=== PATIENT | female | born 1955 | race Caucasian/White ===

== ENCOUNTER 2016-11-04 17:06 | Inpatient (IN) | payer BC, OTHER ==
[~2016-11-04] VITALS: Ht 157.5 cm; Wt 63.0 kg
[2016-11-04] VITALS (8 sets, daily range): BP systolic 146–191; BP diastolic 88–108; PULSE 64–84; RESP 16–18; TEMP 98; O2SAT 97–99
[~2016-11-04 17:06] MED LIST: ASPI81TA82 PO; CHLO10 PO; CLON.1 PO; ESCI10TA PO; FENO160T2 PO; FOLI1 PO; HYDR-2768 PO; KCL20 PO; LEVA750T PO; LORA-474 PO; MAGN400 PO; PROT40TA PO; QUET100 PO; THIA100T PO; VALT1TAB26 PO
[2016-11-04] MEDS ORDERED: MELA1TAB18 PO (17:24)
[2016-11-04] MEDS ORDERED: ACYC800T PO (17:24)
[2016-11-04] MEDS ORDERED: ASPI1TAB69 PO (17:24)
--- NOTE | 2016-11-04 17:26 | PD ---
HPI Chief Complaint: GI Complaint Time Seen by Provider: 17:17 Travel History International Travel<30 days: No Contact w/Intl Traveler<30days: No Traveled to known affect area: No History of Present Illness HPI 61-year-old female here for evaluation of right upper quadrant abdominal pain. The patient reports having 4 episodes of pain in this area that wrapped around her back and upper abdomen this morning after eating. She has never had pain like this before. She states that the pain was severe. Currently she is pain- free. She denies dyspnea. No fevers or chills. No urinary symptoms. She forced himself to vomit thinking that it would alleviate the pain, however has not had any vomiting other than this episode. No diarrhea. She denies history of cardiac disease stating that she had a normal stress test in April of last year. No history of DVT or PE. She drank a glass of wine yesterday and about a year ago stopped drinking daily. History of tummy tuck. No other abdominal surgeries. PFSH Past Medical History Autoimmune Disease: No Anxiety: Yes Depression: No High Cholesterol: Yes Diminished Hearing: No Endocrine: No GERD: Yes Genitourinary: No Hypertension: Yes Immune Disorder: No Musculoskeletal: No Neurologic: Yes Psychiatric: Yes Reproductive: No Respiratory: No Immunizations Current: No Migraines: Yes Thyroid Disease: No Menopausal: Yes Past Surgical History Eye Surgery: Yes (CATARACTS) Other Surgery: Yes (BREAST AUGMENTATION) Social History Alcohol Use: Yes (UNKNOWN TYPE OF DRINK ) Tobacco Use: Yes (VAPE) Allergies-Medications (Allergen,Severity, Reaction): Coded Allergies: Penicillin (Verified Allergy, Severe, UNKNOWN, 11/04/16) UNKNOWN SINCE CHILDHOOD Reported Meds & Prescriptions Reported Meds & Active Scripts Active Reported Acyclovir 800 Mg Tab Unknown Dose PO BID Melatonin 10 Mg Tab 10 Mg PO HS PRN Aspirin 81 Mg Tabdr 81 Mg PO DAILY Review of Systems Except as stated in HPI: all other systems reviewed are Neg Physical Exam Narrative GENERAL: Well-developed, well-nourished, comfortable, no acute distress. SKIN: Focused skin assessment warm/dry. No rash. HEAD: Atraumatic. Normocephalic. EYES: Pupils equal and round. No scleral icterus. No injection or drainage. ENT: No nasal bleeding or discharge. Mucous membranes pink and moist. NECK: Trachea midline. No JVD. CARDIOVASCULAR: Regular rate and rhythm. RESPIRATORY: No accessory muscle use. Clear to auscultation. Breath sounds equal bilaterally. GASTROINTESTINAL: Abdomen soft, nondistended. Mild RUQ tenderness. Rest of abdomen is soft and non-tender. No peritoneal signs. Negative Castillo sign. MUSCULOSKELETAL: No obvious deformities. No clubbing. No cyanosis. No edema. No CVA tenderness. No midline vertebral step-off or tenderness. NEUROLOGICAL: Awake and alert. No obvious cranial nerve deficits. Motor grossly within normal limits. Normal speech. PSYCHIATRIC: Appropriate mood and affect; insight and judgment normal. Data Data Last Documented VS Vital Signs Date Time Temp Pulse Resp B/P Pulse Ox O2 Delivery O2 Flow Rate FiO2 11/04/16 18:38 84 16 146/88 97 Room Air 11/04/16 17:09 98.0 Orders Complete Blood Count With Diff (11/04/16 17:22) Comprehensive Metabolic Panel (11/04/16 17:22) Lipase (11/04/16 17:22) Prothrombin Time / Inr (Pt) (11/04/16 17:22) Act Partial Throm Time (Ptt) (11/04/16 17:22) Urinalysis - C+S If Indicated (11/04/16 17:22) Us Abdomen Gallbladder (11/04/16 ) Iv Access Insert/Monitor (11/04/16 17:22) Ecg Monitoring (11/04/16 17:22) Oximetry (11/04/16 17:22) Sodium Chloride 0.9% Flush (Ns Flush) (11/04/16 17:30) Electrocardiogram (11/04/16 17:22) Ckmb (Isoenzyme) Profile (11/04/16 17:22) Troponin I (11/04/16 17:22) Ciprofloxacin 400 Mg Premix (Cipro 400 M (11/04/16 19:45) Metronidazole 500 Mg Inj (Flagyl 500 Mg (11/04/16 19:45) Labs Laboratory Tests Test 11/04/16 11/04/16 17:30 17:35 Urine Collection Type CLEAN CATCH Urine Color YELLOW Urine Turbidity CLEAR Urine pH 5.5 Urine Specific [place] 1.025 Urine Protein NEG mg/dL Urine Glucose (UA) NEG mg/dL Urine Ketones TRACE mg/dL Urine Occult Blood NEG Urine Nitrite NEG Urine Bilirubin NEG Urine Leukocyte Esterase NEG Urine WBC 0-2 /hpf Urine Squamous Epithelial 6-8 /hpf Cells Urine Amorphous Sediment FEW Microscopic Urinalysis Comment CULT NOT INDICATED Urine Collection Time 1730 White Blood Count 12.3 TH/MM3 Red Blood Count 4.13 MIL/MM3 Hemoglobin 13.1 GM/DL Hematocrit 37.8 % Mean Corpuscular Volume 91.5 FL Mean Corpuscular Hemoglobin 31.6 PG Mean Corpuscular Hemoglobin 34.6 % Concent Red Cell Distribution Width 12.2 % Platelet Count 298 TH/MM3 Mean Platelet Volume 8.7 FL Neutrophils (%) (Auto) 75.5 % Lymphocytes (%) (Auto) 16.3 % Monocytes (%) (Auto) 6.8 % Eosinophils (%) (Auto) 1.1 % Basophils (%) (Auto) 0.3 % Neutrophils # (Auto) 9.4 TH/MM3 Lymphocytes # (Auto) 2.0 TH/MM3 Monocytes # (Auto) 0.8 TH/MM3 Eosinophils # (Auto) 0.1 TH/MM3 Basophils # (Auto) 0.0 TH/MM3 CBC Comment DIFF FINAL Differential Comment Prothrombin Time 10.6 SEC Prothromb Time International 1.0 RATIO Ratio Activated Partial 25.3 SEC Thromboplast Time Sodium Level 140 MEQ/L Potassium Level 3.4 MEQ/L Chloride Level 104 MEQ/L Carbon Dioxide Level 27.0 MEQ/L Anion Gap 9 MEQ/L Blood Urea Nitrogen 21 MG/DL Creatinine 0.68 MG/DL Estimat Glomerular Filtration 88 ML/MIN Rate Random Glucose 129 MG/DL Calcium Level 8.9 MG/DL Total Bilirubin 0.3 MG/DL Aspartate Amino Transf 21 U/L (AST/SGOT) Alanine Aminotransferase 21 U/L (ALT/SGPT) Alkaline Phosphatase 72 U/L Total Creatine Kinase 85 U/L Troponin I LESS THAN 0.02 NG/ML Total Protein 8.1 GM/DL Albumin 4.2 GM/DL Lipase 447 U/L [facility] Medical Decision Making Medical Screen Exam Complete: Yes Emergency Medical Condition: Yes Medical Record Reviewed: Yes Interpretation(s) EKG: Sinus, rate 73, leftward axis, normal intervals, RSR prime which is old, Q waves in inferior leads, no acute ischemic abnormality Differential Diagnosis Cholelithiasis, cholecystitis, pancreatitis, peptic ulcer disease, nephrolithiasis, pyelonephritis Narrative Course Initial vital signs show heart rate 80, blood pressure 152/89, pulse ox 99% on room air, oral temp of 98F. CBC shows WBC 12.3, hemoglobin 13.1, hematocrit 37.8, platelets 298, neutrophils 75.5%. CMP is essentially unremarkable. Cardiac enzymes are negative. Lipase is 447. UA shows trace ketones, not suggestive of UTI. Right upper quadrant ultrasound: CONCLUSION: 1. Gallstone in the gallbladder with some thickening of the gallbladder wall. There is a trace of fluid adjacent to the gallbladder. No definite biliary tract obstruction.2. The rest of the exam is unremarkable. Case discussed with on-call [facility] general surgeon Dr. Koch who recommends starting the patient on antibiotics, admitting to the [facility] hospital to the medical service for repeat lab work in the morning. He will see the patient in consultation. Case discussed with [facility] hospitalist Dr. Sage who will admit the patient to his service to the [facility] hospital. The patient was made aware of all findings and of plan for admission. Diagnosis Primary Impression: Biliary colic Admitting Information Admitting Physician Requests: Observation Mo Sanchez MD Nov 04, 2016 17:26
[2016-11-04] MEDS ORDERED: SODIUM CHLORIDE 0.9% FLUSH 10 ML FLUSH IV FLUSH PRN (17:30)
[2016-11-04 17:48] LABS: AUTOMATED NEUTROPHIL # 9.4 TH/MM3 (1.8-7.7); BASOPHIL % 0.3 % (0.0-2.0); EOSINOPHIL # 0.1 TH/MM3 (0-0.4); EOSINOPHIL % 1.1 % (0.0-4.0); HEMATOCRIT 37.8 % (35.0-46.0); LYMPH % 16.3 % (9.0-44.0); MEAN CELL VOLUME 91.5 FL (80.0-100.0); MEAN CORPUSCULAR HEMOGLOBIN 31.6 PG (27.0-34.0); MEAN CORPUSCULAR HGB CONC 34.6 % (32.0-36.0); MONO % 6.8 % (0.0-8.0); NEUT % 75.5 % (16.0-70.0); PLATELET COUNT 298 TH/MM3 (150-450); RED BLOOD COUNT 4.13 MIL/MM3 (4.00-5.30); RED CELL DISTRIBUTION WIDTH 12.2 % (11.6-17.2); WHITE BLOOD COUNT 12.3 TH/MM3 (4.0-11.0)
[2016-11-04 17:50] LABS: HEMO FLAGS DIFF FINAL
[2016-11-04 17:56] LABS: BLOOD, URINE NEG (NEG); GLUCOSE,URINE NEG (NEG); KETONE, URINE TRACE mg/dL (NEG); NITRITE,URINE NEG (NEG); PH, URINE 5.5 (5.0-8.5)
[2016-11-04 17:57] LABS: CHLORIDE 104 MEQ/L (98-107); POTASSIUM 3.4 MEQ/L (3.5-5.1); SODIUM (NA) 140 MEQ/L (136-145)
[2016-11-04 18:01] LABS: APTT (PATIENT) 25.3 SEC (24.3-30.1); PROTHROMBIN TIME - PATIENT 10.6 SEC (9.8-11.6)
[2016-11-04 18:02] LABS: ANION GAP 9 MEQ/L (5-15); BLOOD UREA NITROGEN 21 MG/DL (7-18)
[2016-11-04 18:04] LABS: ALT (GPT) 21 U/L (10-53); AST (GOT) 21 U/L (15-37); GLOMERULAR FILTRATION RATE 88 ML/MIN (>89)
[2016-11-04 18:06] LABS: TOTAL BILIRUBIN ADULT 0.3 MG/DL (0.2-1.0)
[2016-11-04 18:07] LABS: METHOD OF COLLECTION CLEAN CATCH; URINE COLOR YELLOW (YELLW/STRAW)
[2016-11-04 18:07] LABS: ALKALINE PHOSPHATASE 72 U/L (45-117)
[2016-11-04 18:08] LABS: COMMENT (UR) CULT NOT INDICATED; COMMENT2 (UR) MUCOUS PRESENT; CULTURE IF INDICATED CULT NOT INDICATED; WBC, URINE 0-2 /hpf (0-5)
[2016-11-04 18:09] LABS: CREATINE KINASE 85 U/L (26-192)
--- NOTE | 2016-11-04 19:16 | RADHPO ---
EXAM DATE/TIME: 11/04/2016 18:45 [place] COMPARISON: No previous studies available for comparison. INDICATIONS : Right upper quadrant pain. MEDICAL HISTORY : Hypercholesterolemia. Hypertension. Gastroesophageal reflux disease. SURGICAL HISTORY : Right knee surgery. Breast augmentation. ENCOUNTER: Initial ACUITY: 1 day PAIN SCORE: 6/10 LOCATION: Right upper quadrant MEASUREMENTS: LIVER: 12.8 cm length COMMON DUCT: 7 mm RIGHT KIDNEY: 9.7 x 6.0 x 5.0 cm FINDINGS: LIVER: Normal echotexture without focal lesion or ductal dilatation. COMMON DUCT: No intraluminal mass or stone visualized. GALLBLADDER: There is a stone in the gallbladder measuring 1.7 cm. There is some sludge in the gallbladder. There is thickening of the gallbladder wall at 3 mm. There is a trace of fluid adjacent to the gallbladder. PANCREAS: The visualized portions are within normal limits. RIGHT KIDNEY: No evidence of hydronephrosis, stone, or mass. CONCLUSION: 1. Gallstone in the gallbladder with some thickening of the gallbladder wall. There is a trace of flu id adjacent to the gallbladder. No definite biliary tract obstruction.2. The rest of the exam is unre markable. Felipe Tsai MD on November 04, 2016 at 19:12 Board Certified Radiologist. This report was verified electronically.
[2016-11-04] MEDS ORDERED: metroNIDAZOLE 500 MG INJ 100 ML IV ONE (19:45)
[2016-11-04] MEDS ORDERED: CIPROFLOXACIN 400 MG PREMIX 200 ML IV ONE (19:45)
[2016-11-04] MEDS ORDERED: MORPHINE SULFATE 4 MG/ML INJ IV PUSH ONE (20:00)
[2016-11-04] MEDS ORDERED: SODIUM CHLORIDE 0.9% FLUSH 10 ML FLUSH IVF PRN (20:45)
[2016-11-04] MEDS: SODIUM CHLORIDE 0.9% FLUSH 10 ML FLUSH IV FLUSH SCH (20:58)
[2016-11-04] MEDS ORDERED: LORazepam 2 MG/ML VIAL IV ONE (21:45)
[2016-11-04] MEDS ORDERED: ENALAPRILAT 1.25 MG/ML VIAL IV PUSH PRN (21:45)
[2016-11-04] MEDS ORDERED: ONDANSETRON HCL 4 MG/2 ML VIAL IV PUSH PRN (22:15)
[2016-11-04] MEDS: MORPHINE SULFATE 4 MG/ML INJ IV PUSH PRN (23:12)
[2016-11-04] MEDS: NS + KCL 20 MEQ INJ 1,000 ML IV SCH (23:16)
[2016-11-05] VITALS (8 sets, daily range): BP systolic 123–164; BP diastolic 65–90; PULSE 68–95; RESP 16–20; TEMP 96.8–98.1; O2SAT 93–99
[2016-11-05] MEDS: MORPHINE SULFATE 4 MG/ML INJ IV PUSH PRN ×3 (04:15→12:53)
[2016-11-05] MEDS: metroNIDAZOLE 500 MG INJ 100 ML IV SCH ×3 (04:15→18:06)
[2016-11-05] MEDS: NS + KCL 20 MEQ INJ 1,000 ML IV SCH (08:15)
[2016-11-05] MEDS: LEVOFLOXACIN 500 MG PREMIX INJ 100 ML IV SCH (08:33)
[2016-11-05] MEDS: SODIUM CHLORIDE 0.9% FLUSH 10 ML FLUSH IV FLUSH SCH ×2 (08:34→19:49)
--- NOTE | 2016-11-05 10:15 | EKG ---
Date Performed: 11/04/2016 Time Performed: 17:36:30 PTAGE: 61 years EKG: Sinus rhythm rSr'(V1) - probable normal variant Inferior infarct - age undetermined Compared to prior tracing no significant change Abnormal ECG PREVIOUS TRACING : 03/21/2016 18.21 DOCTOR: Eleni Suero Interpretating Date/Time 11/05/2016 10:14:02
[2016-11-05 10:29] LABS: AUTOMATED NEUTROPHIL # 4.5 TH/MM3 (1.8-7.7); BASOPHIL % 0.7 % (0.0-2.0); EOSINOPHIL # 0.2 TH/MM3 (0-0.4); EOSINOPHIL % 2.2 % (0.0-4.0); HEMATOCRIT 35.5 % (35.0-46.0); HEMO FLAGS DIFF FINAL; LYMPH % 24.2 % (9.0-44.0); LYMPHOCYTE # 1.7 TH/MM3 (1.0-4.8); MEAN CELL VOLUME 92.4 FL (80.0-100.0); MEAN CORPUSCULAR HGB CONC 34.7 % (32.0-36.0); MONO % 10.2 % (0.0-8.0); NEUT % 62.7 % (16.0-70.0); PLATELET COUNT 262 TH/MM3 (150-450); RED BLOOD COUNT 3.84 MIL/MM3 (4.00-5.30); RED CELL DISTRIBUTION WIDTH 12.9 % (11.6-17.2); WHITE BLOOD COUNT 7.2 TH/MM3 (4.0-11.0)
[2016-11-05 11:07] LABS: BICARBONATE 27.7 MEQ/L (21.0-32.0); INDIRECT BILIRUBIN 0.2 MG/DL (0.0-0.8); POTASSIUM 3.5 MEQ/L (3.5-5.1); TOTAL BILIRUBIN ADULT 0.3 MG/DL (0.2-1.0)
--- NOTE | 2016-11-05 11:22 | HHI.HP ---
HPI Service [facility] Hospitalists Primary Care Physician No Primary Care Physician Admission Diagnosis biliary colic Chief Complaint: ruq/right scapula pain Travel History International Travel<30 Days: No Contact w/Intl Traveler <30 Da: No Traveled to Known Affected Are: No History of Present Illness Pt is 61 yo having ruq pain radiating to right scapula. worsened with food intake gb u/s last night shows signs of acute cholecystitis and gallstone dz. started on iv abx and already ruq pain improved. her lipase was elevated on admission mildly. Says she was very anxious last night and that is why her bp is up. no headache. asking for anxiolytics now. Review of Systems Other ruq abdomen pain right scapula pain Past Family Social History Past Medical History htn depression/anxiety breast augmentation abdomenoplasty Reported Medications Reported Meds & Active Scripts Active Reported Acyclovir 800 Mg Tab Unknown Dose PO BID Melatonin 10 Mg Tab 10 Mg PO HS PRN Aspirin 81 Mg Tabdr 81 Mg PO DAILY Allergies: Coded Allergies: Penicillin (Verified Allergy, Severe, UNKNOWN, 11/04/16) UNKNOWN SINCE CHILDHOOD Family History nc Social History occ etoh. wine 3x week describes a past hx sounds like etoh abuse at one point quit smoking after 1ppd x 13yrs Physical Exam Vital Signs heent neg heart reg lung cta abd s/nt/nabs ext no edema Vital Signs Date Time Temp Pulse Resp B/P Pulse Ox O2 Delivery O2 Flow Rate FiO2 11/05/16 08:41 18 11/05/16 07:55 97.8 68 20 141/85 96 11/05/16 07:47 93 21 11/05/16 03:29 97.9 69 16 145/71 95 11/05/16 02:40 70 16 164/90 97 Room Air 11/05/16 01:40 74 16 154/87 98 Room Air 11/05/16 00:05 70 16 164/89 97 Room Air 11/04/16 23:10 82 16 164/92 97 Room Air 11/04/16 22:41 99 21 11/04/16 22:41 67 16 154/92 99 Room Air 11/04/16 22:14 68 16 167/94 99 Room Air 11/04/16 20:57 64 16 191/108 99 Room Air 11/04/16 20:30 70 18 191/103 97 Room Air 11/04/16 20:15 16 11/04/16 18:38 84 16 146/88 97 Room Air 11/04/16 17:43 16 99 Room Air 11/04/16 17:09 98.0 80 16 152/89 99 Laboratory Laboratory Tests Test 11/04/16 11/04/16 11/05/16 17:30 17:35 09:06 Urine Collection Type CLEAN CATCH Urine Color YELLOW Urine Turbidity CLEAR Urine pH 5.5 Urine Specific [place] 1.025 Urine Protein NEG Urine Glucose (UA) NEG Urine Ketones TRACE Urine Occult Blood NEG Urine Nitrite NEG Urine Bilirubin NEG Urine Leukocyte Esterase NEG Urine WBC 0-2 Urine Squamous Epithelial 6-8 Cells Urine Amorphous Sediment FEW Microscopic Urinalysis Comment CULT NOT INDICATED Urine Collection Time 1730 White Blood Count 12.3 7.2 Red Blood Count 4.13 3.84 Hemoglobin 13.1 12.3 Hematocrit 37.8 35.5 Mean Corpuscular Volume 91.5 92.4 Mean Corpuscular Hemoglobin 31.6 32.0 Mean Corpuscular Hemoglobin 34.6 34.7 Concent Red Cell Distribution Width 12.2 12.9 Platelet Count 298 262 Mean Platelet Volume 8.7 9.1 Neutrophils (%) (Auto) 75.5 62.7 Lymphocytes (%) (Auto) 16.3 24.2 Monocytes (%) (Auto) 6.8 10.2 Eosinophils (%) (Auto) 1.1 2.2 Basophils (%) (Auto) 0.3 0.7 Neutrophils # (Auto) 9.4 4.5 Lymphocytes # (Auto) 2.0 1.7 Monocytes # (Auto) 0.8 0.7 Eosinophils # (Auto) 0.1 0.2 Basophils # (Auto) 0.0 0.0 CBC Comment DIFF FINAL DIFF FINAL Differential Comment Prothrombin Time 10.6 Prothromb Time International 1.0 Ratio Activated Partial 25.3 Thromboplast Time Sodium Level 140 140 Potassium Level 3.4 3.5 Chloride Level 104 106 Carbon Dioxide Level 27.0 27.7 Anion Gap 9 6 Blood Urea Nitrogen 21 16 Creatinine 0.68 0.56 Estimat Glomerular Filtration 88 110 Rate Random Glucose 129 101 Calcium Level 8.9 8.8 Total Bilirubin 0.3 0.3 Aspartate Amino Transf 21 19 (AST/SGOT) Alanine Aminotransferase 21 18 (ALT/SGPT) Alkaline Phosphatase 72 69 Total Creatine Kinase 85 Troponin I LESS THAN 0.02 Total Protein 8.1 7.4 Albumin 4.2 3.8 Lipase 447 210 Direct Bilirubin 0.1 Indirect Bilirubin 0.2 Result Diagram: 11/05/16 0911/05/16905 Assessment and Plan Problem List: (1) Acute cholecystitis Status: Acute Plan: Presents with acute cholecystitis/cholelithiasis iv levaquin/flagyl ivf npo pain control consult gen surg lap jimbo today prn bp control dvt prophylaxis d/c when ok with gen surg (2) Hypertension Status: Chronic Plan: prn control start scheduled if needed. Jens Sage MD Nov 05, 2016 11:22
[2016-11-05] MEDS ORDERED: NORMOSOL R INJ 1,000 ML IV ONE (12:00)
[2016-11-05] MEDS ORDERED: ONDANSETRON HCL 4 MG/2 ML VIAL IV PUSH ONE (12:00)
[2016-11-05] MEDS ORDERED: PROPOFOL 200 MG/20 ML AMP IV ONE (12:00)
[2016-11-05] MEDS ORDERED: PHENYLEPH/NS 1000 MCG/10 ML SYR IV ONE (12:00)
[2016-11-05] MEDS ORDERED: ePHEDrine/NS 25 MG/5 ML SYR IV ONE (12:00)
[2016-11-05] MEDS: LORazepam 2 MG/ML VIAL IV PRN ×2 (13:17→19:49)
[2016-11-05] MEDS ORDERED: ACETAMINOPHEN 1000 MG/100 ML VIAL IV ONE (14:00)
[2016-11-05] MEDS ORDERED: DICLOFENAC SODIUM 37.5 MG/ML VIAL IV PUSH ONE (14:00)
[2016-11-05] MEDS ORDERED: fentaNYL CITRATE 250 MCG/5 ML AMP ONE (14:01)
[2016-11-05] MEDS ORDERED: SUGAMMADEX SODIUM 200 MG/2 ML VIAL IV PUSH ONE ×2 (14:01)
[2016-11-05] MEDS ORDERED: DEXAMETHASONE SOD PHOS 4 MG/ML VIAL ONE (14:01)
[2016-11-05] MEDS ORDERED: BUPIVACAINE/EPINEPHRINE 0.5% PF 30 ML VIAL ONE (14:14)
[2016-11-05] MEDS ORDERED: BUPIVACAINE/EPINEPHRINE 0.25% 50 ML VIAL ONE (14:15)
--- NOTE | 2016-11-05 14:35 | MB ---
cc: GURDEEP JIMENEZ DATE OF CONSULTATION: 11/05/2016. REASON FOR CONSULTATION: HISTORY OF PRESENT ILLNESS: This is a 61-year-old female who presented to the emergency room with a complaint of abdominal pain. The pain began on 2006 and was located in the epigastrium and moved to her right back. She states she had a piece of steak the morning prior to pain. She h as had nausea associated with it. Denied emesis. No fevers. No chills. She was worked up in the emergency room with ultrasound that revealed mildly thickened gallbladder wall with a small amount of pericholecystic fluid and gallstones. Her lipase at that time was in the 400s. She denies any change in her stool or her bowel movements. PAST MEDICAL HISTORY: Her past medical history is significant for: 1. Migraines. PAST SURGICAL HISTORY: Her surgical history is significant for: 1. Breast augmentation. 2. Abdominoplasty. MEDICATIONS: She is on medication at home that includes 1. Acyclovir. 2. Melatonin. 3. Aspirin. ALLERGIES: PENICILLIN. SOCIAL HISTORY: She denies tobacco use. She drinks alcohol occasionally. FAMILY HISTORY: Noncontributory. REVIEW OF SYSTEMS: Review of systems significant for above. All other 10-point review negative. PHYSICAL EXAMINATION: GENERAL: On exam she is laying in bed in no acute distress. HEAD, EYES, EARS, NOSE, THROAT: The pupils are equal and reactive. Sclerae anicteric. Trachea is midline. Respirations clear. CARDIOVASCULAR: Cardiovascular was regular. GASTROINTESTINAL: Soft. Mild tenderness in the right upper quadrant. MUSCULOSKELETAL: No deformities. NEUROLOGIC: Nonfocal. LABORATORY DATA: The patient's white blood cell count on presentation was 12.2 and 7.2 today. Neutrophils on presentation 75 and 62 today. Her lipase 447 on presentation and 210 today. ASSESSMENT: This is a patient with cholelithiasis and cholecystitis. PLAN: Will take the patient to the operating room for laparoscopic cholecystectomy. The risks and benefits were explained to include but not be exclusive to infection, bleeding, bowel injury, bile duct injury. Technical aspects explained as well as shannon- and postoperative course. The patient verbalized understanding and consent was obtained. Will proceed to the operating room. MD FABIO Gregorio/JCMarilin /1:44 PM /2:28 PM
[2016-11-05] MEDS ORDERED: ACETAMINOPHEN/HYDROcodone 325 MG/5 MG TAB PO PRN (15:00)
[2016-11-05] MEDS ORDERED: SODIUM CHLORIDE 0.9% FLUSH 10 ML FLUSH IV FLUSH PRN (15:00)
[2016-11-05] MEDS ORDERED: MORPHINE SULFATE 4 MG/ML INJ IV PRN (15:00)
[2016-11-05] MEDS ORDERED: ACETAMINOPHEN 325 MG TAB PO PRN (15:00)
[2016-11-05] MEDS ORDERED: ONDANSETRON HCL 4 MG/2 ML VIAL IV PRN (15:00)
[2016-11-05] MEDS ORDERED: Post-op Orders (for Pharmacy) MISC XX ONE (15:00)
[2016-11-05] MEDS ORDERED: MIDAZOLAM HCL 2 MG/2 ML VIAL ONE (15:37)
[2016-11-05] MEDS ORDERED: KETOROLAC TROMETHAMINE 30 MG/ML (IVP) VIAL IVP PRN ×2 (16:00)
[2016-11-05] MEDS: SODIUM CHLOR 0.9% 1000 ML INJ 1,000 ML IV SCH (16:21)
[2016-11-06 00:05] VITALS: BP 150/81; PULSE 102; RESP 20; TEMP 96; O2SAT 94
[2016-11-06] MEDS: metroNIDAZOLE 500 MG INJ 100 ML IV SCH ×2 (01:38→13:02)
[2016-11-06] MEDS: SODIUM CHLOR 0.9% 1000 ML INJ 1,000 ML IV SCH ×2 (01:38→11:30)
[2016-11-06 04:02] VITALS: BP 137/79; PULSE 88; RESP 20; TEMP 96; O2SAT 92
[2016-11-06 08:00] VITALS: BP 147/91; PULSE 83; RESP 16; TEMP 98.6; O2SAT 99
[2016-11-06] MEDS: LEVOFLOXACIN 500 MG PREMIX INJ 100 ML IV SCH (08:30)
[2016-11-06] MEDS: ACETAMINOPHEN/HYDROcodone 325 MG/5 MG TAB PO PRN ×3 (08:33→17:03)
[2016-11-06] MEDS: SODIUM CHLORIDE 0.9% FLUSH 10 ML FLUSH IV FLUSH SCH (08:34)
[2016-11-06] MEDS: LORazepam 2 MG/ML VIAL IV PRN (09:57)
[2016-11-06] MEDS ORDERED: PNEUMOCOCCAL POLYVALENT INJ 25 MCG/0.5 ML SYR IM ONE (10:00)
[2016-11-06] MEDS ORDERED: INFLUENZA VIRUS VACCINE (QUADRIVALENT) 0.5 ML SYR IM ONE (10:00)
[2016-11-06 12:00] VITALS: BP 142/87; PULSE 90; RESP 16; TEMP 98.1; O2SAT 96
--- NOTE | 2016-11-06 14:20 | HHI.PR ---
Subjective Remarks Pt is feeling well today Some abd discomfort at the incision sites Pt tolerating full liquid diet and is anxious for discharge. Objective Vitals Vital Signs Date Time Temp Pulse Resp B/P Pulse Ox O2 Delivery O2 Flow Rate FiO2 11/06/16 12:00 98.1 90 16 142/87 96 11/06/16 08:00 98.6 83 16 147/91 99 11/06/16 04:02 96.0 88 20 137/79 92 11/06/16 00:05 96.0 102 20 150/81 94 11/05/16 20:00 96.8 95 20 154/70 98 11/05/16 16:00 80 18 128/81 98 11/05/16 15:45 80 18 122/76 94 11/05/16 15:30 76 18 124/78 97 11/05/16 15:27 97.5 93 18 133/83 95 11/05/16 11/05/16 11/06/16 15:00 23:00 07:00 Intake Total 360 ml 1396 ml Balance 360 ml 1396 ml Intake Oral 360 ml 120 ml IV Total 1276 ml # Voids 1 2 # Bowel Movements 0 0 Result Diagram: 11/05/16 0906 11/05/16 0906 Other Results Laboratory Tests Test 11/04/16 11/04/16 11/05/16 17:30 17:35 09:06 Urine Collection Type CLEAN CATCH Urine Color YELLOW Urine Turbidity CLEAR Urine pH 5.5 Urine Specific [place] 1.025 Urine Protein NEG mg/dL Urine Glucose (UA) NEG mg/dL Urine Ketones TRACE mg/dL Urine Occult Blood NEG Urine Nitrite NEG Urine Bilirubin NEG Urine Leukocyte Esterase NEG Urine WBC 0-2 /hpf Urine Squamous Epithelial 6-8 /hpf Cells Urine Amorphous Sediment FEW Microscopic Urinalysis Comment CULT NOT INDICATED Urine Collection Time 1730 White Blood Count 12.3 TH/MM3 7.2 TH/MM3 Red Blood Count 4.13 MIL/MM3 3.84 MIL/MM3 Hemoglobin 13.1 GM/DL 12.3 GM/DL Hematocrit 37.8 % 35.5 % Mean Corpuscular Volume 91.5 FL 92.4 FL Mean Corpuscular Hemoglobin 31.6 PG 32.0 PG Mean Corpuscular Hemoglobin 34.6 % 34.7 % Concent Red Cell Distribution Width 12.2 % 12.9 % Platelet Count 298 TH/MM3 262 TH/MM3 Mean Platelet Volume 8.7 FL 9.1 FL Neutrophils (%) (Auto) 75.5 % 62.7 % Lymphocytes (%) (Auto) 16.3 % 24.2 % Monocytes (%) (Auto) 6.8 % 10.2 % Eosinophils (%) (Auto) 1.1 % 2.2 % Basophils (%) (Auto) 0.3 % 0.7 % Neutrophils # (Auto) 9.4 TH/MM3 4.5 TH/MM3 Lymphocytes # (Auto) 2.0 TH/MM3 1.7 TH/MM3 Monocytes # (Auto) 0.8 TH/MM3 0.7 TH/MM3 Eosinophils # (Auto) 0.1 TH/MM3 0.2 TH/MM3 Basophils # (Auto) 0.0 TH/MM3 0.0 TH/MM3 CBC Comment DIFF FINAL DIFF FINAL Differential Comment Prothrombin Time 10.6 SEC Prothromb Time International 1.0 RATIO Ratio Activated Partial 25.3 SEC Thromboplast Time Sodium Level 140 MEQ/L 140 MEQ/L Potassium Level 3.4 MEQ/L 3.5 MEQ/L Chloride Level 104 MEQ/L 106 MEQ/L Carbon Dioxide Level 27.0 MEQ/L 27.7 MEQ/L Anion Gap 9 MEQ/L 6 MEQ/L Blood Urea Nitrogen 21 MG/DL 16 MG/DL Creatinine 0.68 MG/DL 0.56 MG/DL Estimat Glomerular Filtration 88 ML/MIN 110 ML/MIN Rate Random Glucose 129 MG/DL 101 MG/DL Calcium Level 8.9 MG/DL 8.8 MG/DL Total Bilirubin 0.3 MG/DL 0.3 MG/DL Aspartate Amino Transf 21 U/L 19 U/L (AST/SGOT) Alanine Aminotransferase 21 U/L 18 U/L (ALT/SGPT) Alkaline Phosphatase 72 U/L 69 U/L Total Creatine Kinase 85 U/L Troponin I LESS THAN 0.02 NG/ML Total Protein 8.1 GM/DL 7.4 GM/DL Albumin 4.2 GM/DL 3.8 GM/DL Lipase 447 U/L 210 U/L Direct Bilirubin 0.1 MG/DL Indirect Bilirubin 0.2 MG/DL Imaging Last Impressions Gall Bladder Ultrasound 11/04/16 0000 Signed Impressions: Service Date/Time: Friday, November 04, 2016 18:45 - CONCLUSION: 1. Gallstone in the gallbladder with some thickening of the gallbladder wall. There is a trace of fluid adjacent to the gallbladder. No definite biliary tract obstruction. 2. The rest of the exam is unremarkable. Felipe Tsai MD Objective Remarks General: NAD, AAOx3 Chest: CTA Cardiac: Regular Abd: +BS, soft ND, steri strips in place, minimally tender Ext: No edema A/P Problem List: (1) Acute cholecystitis Status: Acute Plan: - Pt presented with acute cholecystitis/cholelithiasis - GB US --> Gallstone in the gallbladder with some thickening of the gallbladder wall. There is a trace of fluid adjacent to the gallbladder. No definite biliary tract obstruction. - Pt was started on IV Levaquin/Flagyl at admission - Pt underwent Lap Bella on 11/05/16 - Today pt tolerating full liquids. - She has been cleared for discharge by General Surgery and was prescribed Percocet 5/325 Q4-6H PRN - Advance to low fat diet for dinner and if tolerating can discharge home this evening. - DVT prophylaxis (2) Hypertension Status: Chronic Plan: - PRN control - BP more stable today. Assessment and Plan Patient examined. Assessment and plan formulated with Jana Franco PA-C. I agree with the above. Jana Franco Nov 06, 2016 14:19 Ulysses Stone DO Nov 19, 2016 10:10
--- NOTE | 2016-11-06 14:22 | HHI.DCPOC ---
Discharge Care Plan Diagnosis: (1) Acute cholecystitis (2) Hypertension Goals to Promote Your Health * To prevent worsening of your condition and complications * To maintain your health at the optimal level Directions to Meet Your Goals Take your medications as prescribed Follow your dietary instruction Follow activity as directed Keep your appointments as scheduled Take your immunizations and boosters as scheduled If your symptoms worsen call your PCP, if no PCP go to Urgent Care Center or Emergency Room Smoking is Dangerous to Your Health. Avoid second hand smoke Call the 24-hour hour crisis hotline for domestic abuse at Jana Franco Nov 06, 2016 14:22 Ulysses Stone DO Nov 19, 2016 10:10
[2016-11-06] MEDS ORDERED: PERC5TAB12 PO (14:24)
--- NOTE | 2016-11-07 11:45 | MP ---
cc: HENRRY KOCH DATE OF SURGERY: 11/05/2016 DATE OF : 1955 PREOPERATIVE DIAGNOSIS Cholecystitis with cholelithiasis. POSTOPERATIVE DIAGNOSIS Cholecystitis with cholelithiasis. PROCEDURE Laparoscopic cholecystectomy. SURGEON Henrry Koch ANESTHESIA General endotracheal. ESTIMATED BLOOD LOSS Scant. FINDINGS Distended gallbladder, edematous gallbladder, mildly prominent cystic duct. SPECIMEN Gallbladder with stones. COMPLICATIONS None. OPERATION The patient was brought to the operating room and placed on the operating table in a supine position. Bilateral sequential inflation devices were placed on the lower extremities. General anesthesia was instituted. The abdomen was prepped and draped sterilely. The infraumbilical region was anesthetized with 0.25% Marcaine with epinephrine. A skin incision was made. A 5 mm OptiView port was placed under direct vision, a pneumoperitoneum created. Under direct vision a 12 mm subxiphoid and two 5 mm right upper quadrant ports were placed. Prior to placement of all ports the skin and peritoneum were anesthetized with 0.25% Marcaine with epinephrine. The patient was placed in reverse Trendelenburg position, right side up. The gallbladder was retracted into the upper abdomen. Findings as above. The cystic artery was identified. It was circumferentially dissected and ligated with the Harmonic scalpel. The cystic duct was identified and dissected with the Harmonic scalpel. It was found to be tortuous and dilated so it was decided to take the gallbladder down in an antegrade fashion. This ws done using the Harmonic scalpel. The only remaining attachment was the cystic duct. The cystic duct was then Endoloop'ed with a 2-0 Vicryl Endoloop and divided with the Harmonic scalpel. The gallbladder was then retried from the peritoneal cavity in an Endopouch through the 12 mm port site. The operative field was inspected. Hemostasis was present. There was no evidence of bile leak. CO2 was released. All ports were removed. All skin incisions were closed with 4-0 Monocryl. The abdominal wall was cleaned and a sterile dressing placed. The patient was awakened and taken to the recovery room. MD FABIO Gregorio/LUIS /9:19 PM /11:44 AM
== END 2016-11-06 18:34 | disposition home or self-care (01) | DRG 419 ==
LOC: PHED 17:06 → PHEDA 19:56 → NEPGCP 11-05 03:14 → N07B 11-05 14:29 → OBSVTOIN 11-05 15:00 → N07B 11-05 16:26
PROVIDERS: ADMIT Hospitalist; ATTEND Hospitalist
PROC: 0FT44ZZ Resection of Gallbladder, Percutaneous Endoscopic Approach (ICD-10-PCS; principal; 2016-11-05 14:13)
DX: K80.12 Calculus of gallbladder with acute and chronic cholecystitis without obstruction (principal); I10 Essential (primary) hypertension; E78.5 Hyperlipidemia, unspecified; K21.9 Gastro-esophageal reflux disease without esophagitis; F41.9 Anxiety disorder, unspecified; G43.909 Migraine, unspecified, not intractable, without status migrainosus; F17.290 Nicotine dependence, other tobacco product, uncomplicated
CPT/HCPCS: 76705; 80048; 80053; 80076; 81001; 82550; 83690; 84484; 85025; 85610; 85730; 88304; 93005; 94150; 96374; J0131; J0744; J1100; J1130; J1956; J2060; J2250; J2270; J2370; J2405; J3010; J3480; J7030

== ENCOUNTER 2016-12-08 16:23 | Emergency (ER) | payer OTHER ==
[~2016-12-08] VITALS: Ht 154.9 cm; Wt 62.0 kg
[2016-12-08] VITALS (7 sets, daily range): BP systolic 97–142; BP diastolic 64–93; PULSE 74–98; RESP 16–20; TEMP 97.7–98; O2SAT 94–99
[~2016-12-08 16:23] MED LIST changes: +ACYC800T PO; +ASPI1TAB69 PO; -ASPI81TA82 PO; -CHLO10 PO; -CLON.1 PO; -ESCI10TA PO; -FENO160T2 PO; -FOLI1 PO; -HYDR-2768 PO; -KCL20 PO; -LEVA750T PO; -LORA-474 PO; -MAGN400 PO; +MELA1TAB18 PO; +PERC5TAB12 PO; -PROT40TA PO; -QUET100 PO; -THIA100T PO; -VALT1TAB26 PO
--- NOTE | 2016-12-08 16:57 | PD ---
HPI Chief Complaint: Suicide Ideation/Attempt Time Seen by Provider: 16:46 Travel History International Travel<30 days: No Contact w/Intl Traveler<30days: No Traveled to known affect area: No History of Present Illness HPI The patient was seen and examined in the presence of the nurse. This patient is brought in by her daughter. She is now call occurred drinks large quantities daily. Today she was feeling depressed and suicidal. She drank an unknown quantity of rubbing alcohol today. She admits to doing it to hurt herself. It's unclear how much she took or what time she took it. Symptoms severity is moderate. No alleviating factors. No fever or injury. She denies drug use or any pill ingestion. Duration one day. PFSH Past Medical History Autoimmune Disease: No Anxiety: Yes Depression: Yes Cancer: No Cardiovascular Problems: Yes High Cholesterol: Yes Diminished Hearing: No Endocrine: No Gastrointestinal Disorders: Yes GERD: Yes Genitourinary: No Hypertension: Yes Immune Disorder: No Implanted Vascular Access Dvce: No Musculoskeletal: Yes (Arthritis) Neurologic: Yes Psychiatric: Yes Reproductive: No Respiratory: No Immunizations Current: No Migraines: Yes Thyroid Disease: No Menopausal: Yes Past Surgical History Body Medical Devices: Jaw, pins Eye Surgery: Yes (CATARACTS) Other Surgery: Yes (BREAST AUGMENTATION) Social History Alcohol Use: Yes (UNKNOWN TYPE OF DRINK ) Tobacco Use: No Substance Use: No Allergies-Medications (Allergen,Severity, Reaction): Coded Allergies: Penicillin (Verified Allergy, Severe, ANAPHYLAXIS, 12/08/16) UNKNOWN SINCE CHILDHOOD Reported Meds & Prescriptions Reported Meds & Active Scripts Active Review of Systems General / Constitutional: No: Fever Eyes: No: Visual changes HENT: No: Headaches Cardiovascular: No: Chest Pain or Discomfort Respiratory: No: Shortness of Breath Gastrointestinal: No: Abdominal Pain Genitourinary: No: Dysuria Musculoskeletal: No: Pain Skin: No Rash Neurologic: No: Weakness Psychiatric: Positive: Depression, Suicidal Ideations, Substance Abuse Endocrine: No: Polydipsia Hematologic/Lymphatic: No: Easy Bruising Physical Exam Narrative GENERAL: Well-nourished, well-developed patient who smells of ketones SKIN: Focused skin assessment reveals no rash and nodules. Skin is Warm and dry. HEAD: Atraumatic. Normocephalic. EYES: Pupils equal and round. No scleral icterus. No injection or drainage. ENT: No nasal bleeding or discharge. Mucous membranes pink and moist. NECK: Trachea midline. No JVD. CARDIOVASCULAR: Regular rate and rhythm. No murmur appreciated. RESPIRATORY: No accessory muscle use. Clear to auscultation. Breath sounds equal bilaterally. GASTROINTESTINAL: Abdomen soft, non-tender, nondistended. Hepatic and splenic margins not palpable. MUSCULOSKELETAL: No obvious deformities. No clubbing. No cyanosis. No edema. NEUROLOGICAL: Awake and alert. No obvious cranial nerve deficits. Motor grossly within normal limits. Slight slurring of speech. PSYCHIATRIC: Depressed mood and flat affect; insight and judgment poor . Data Data Last Documented VS Vital Signs Date Time Temp Pulse Resp B/P Pulse Ox O2 Delivery O2 Flow Rate FiO2 12/08/16 17:58 89 18 121/93 98 Room Air 12/08/16 16:39 98.0 Orders Electrocardiogram (12/08/16 16:50) Complete Blood Count With Diff (12/08/16 16:50) Comprehensive Metabolic Panel (12/08/16 16:50) Iv Access Insert/Monitor (12/08/16 16:50) Ecg Monitoring (12/08/16 16:50) Oximetry (12/08/16 16:50) Psych Screen (12/08/16 16:50) Sodium Chloride 0.9% Flush (Ns Flush) (12/08/16 17:00) Call Poison Control (12/08/16 16:50) Drug Screen, Random Urine (12/08/16 16:50) Alcohol (Ethanol) (12/08/16 16:50) Salicylates (Aspirin) (12/08/16 16:50) Tylenol (Acetaminophen) (12/08/16 16:50) Sodium Chlor 0.9% 1000 Ml Inj (Ns 1000 M (12/08/16 17:00) Beta Hydroxybutyrate (Acetone) (12/08/16 17:00) Labs Laboratory Tests Test 12/08/16 12/08/16 17:00 17:55 White Blood Count 10.3 TH/MM3 Red Blood Count 4.49 MIL/MM3 Hemoglobin 13.9 GM/DL Hematocrit 40.9 % Mean Corpuscular Volume 91.1 FL Mean Corpuscular Hemoglobin 31.0 PG Mean Corpuscular Hemoglobin 34.0 % Concent Red Cell Distribution Width 13.0 % Platelet Count 331 TH/MM3 Mean Platelet Volume 8.3 FL Neutrophils (%) (Auto) 75.4 % Lymphocytes (%) (Auto) 20.5 % Monocytes (%) (Auto) 3.8 % Eosinophils (%) (Auto) 0.0 % Basophils (%) (Auto) 0.3 % Neutrophils # (Auto) 7.8 TH/MM3 Lymphocytes # (Auto) 2.1 TH/MM3 Monocytes # (Auto) 0.4 TH/MM3 Eosinophils # (Auto) 0.0 TH/MM3 Basophils # (Auto) 0.0 TH/MM3 CBC Comment DIFF FINAL Differential Comment Sodium Level 142 MEQ/L Potassium Level 3.3 MEQ/L Chloride Level 105 MEQ/L Carbon Dioxide Level 22.0 MEQ/L Anion Gap 15 MEQ/L Blood Urea Nitrogen 10 MG/DL Creatinine 1.80 MG/DL Estimat Glomerular Filtration 29 ML/MIN Rate Random Glucose 129 MG/DL Calcium Level 9.2 MG/DL Total Bilirubin 0.1 MG/DL Aspartate Amino Transf 16 U/L (AST/SGOT) Alanine Aminotransferase 17 U/L (ALT/SGPT) Alkaline Phosphatase 83 U/L Total Protein 8.3 GM/DL Albumin 4.3 GM/DL Ethyl Alcohol Level 123 MG/DL B-Hydroxybutyrate 0.37 MMOL/L Urine Opiates Screen NEG Urine Barbiturates Screen NEG Urine Amphetamines Screen NEG Urine Benzodiazepines Screen NEG Urine Cocaine Screen NEG Urine Cannabinoids Screen NEG MDM Medical Decision Making Medical Screen Exam Complete: Yes Emergency Medical Condition: Yes Medical Record Reviewed: Yes Differential Diagnosis Alcohol intoxication, suicidal ideation, depression, ketonemia Narrative Course I have reviewed the patient's electronic medical record. Patient's been here multiple times for intentional overdose Charge nurse Phylicia reviewed in detail with poison control and we received the recommendations IV placed I gave her 1 L normal saline IV bolus CBC is normal Metabolic profile shows mild renal insufficiency with creatinine 1.8 LFTs are normal Alcohol is 123 showing acute intoxication Beta hydroxybutyrate is normal Tylenol is pending Aspirin is pending Toxicology screen sent I don't have an isopropyl alcohol level that I can order here Initial vital signs are normal Psych screen is ordered as she is feeling suicidal but agrees to it so I'm not ordering Ward act at this time I gave her 2 mg oral Ativan for mild agitation I don't feel she is in withdrawal but acutely intoxicated She'll be given some time to sober up and security will transport her to the main hospital for psychiatric screening and she is deemed medically clear as she is a stable as I can make her Diagnosis Primary Impression: Suicidal ideation Additional Impression: Alcohol intoxication Qualified Code: F10.920 - Alcohol intoxication, uncomplicated Scripts No Active Prescriptions or Reported Meds Carmelo Sterling MD December 08, 2016 16:57
[2016-12-08] MEDS ORDERED: SODIUM CHLORIDE 0.9% FLUSH 10 ML FLUSH IVF PRN (17:00)
[2016-12-08] MEDS ORDERED: SODIUM CHLOR 0.9% 1000 ML INJ 1,000 ML IV ONE (17:00)
[2016-12-08 17:12] LABS: AUTOMATED NEUTROPHIL # 7.8 TH/MM3 (1.8-7.7); BASOPHIL % 0.3 % (0.0-2.0); HEMATOCRIT 40.9 % (35.0-46.0); HEMO FLAGS DIFF FINAL; LYMPH % 20.5 % (9.0-44.0); LYMPHOCYTE # 2.1 TH/MM3 (1.0-4.8); MEAN CELL VOLUME 91.1 FL (80.0-100.0); MONO % 3.8 % (0.0-8.0); NEUT % 75.4 % (16.0-70.0); PLATELET COUNT 331 TH/MM3 (150-450); RED BLOOD COUNT 4.49 MIL/MM3 (4.00-5.30); WHITE BLOOD COUNT 10.3 TH/MM3 (4.0-11.0)
[2016-12-08 17:30] LABS: CHLORIDE 105 MEQ/L (98-107); POTASSIUM 3.3 MEQ/L (3.5-5.1); SODIUM (NA) 142 MEQ/L (136-145)
[2016-12-08 17:34] LABS: ANION GAP 15 MEQ/L (5-15); BLOOD UREA NITROGEN 10 MG/DL (7-18)
[2016-12-08 17:36] LABS: AST (GOT) 16 U/L (15-37)
[2016-12-08 17:37] LABS: ALT (GPT) 17 U/L (10-53); BETA-HYDROXYBUTYRATE 0.37 MMOL/L (0.00-0.39); GLOMERULAR FILTRATION RATE 29 ML/MIN (>89)
[2016-12-08 17:38] LABS: TOTAL BILIRUBIN ADULT 0.1 MG/DL (0.2-1.0)
[2016-12-08 17:39] LABS: ALKALINE PHOSPHATASE 83 U/L (45-117)
[2016-12-08 18:20] LABS: BARBITURATES, URINE NEG (NEG); COCAINE, URINE NEG (NEG)
[2016-12-08 18:21] LABS: AMPHETAMINE, URINE NEG (NEG)
[2016-12-08] MEDS ORDERED: LORazepam 1 MG TAB PO ONE (19:15)
[2016-12-08 19:20] LABS: ACETAMINOPHEN LESS THAN 2.0 MCG/ML (10.0-30.0)
[2016-12-09 02:58] VITALS: BP 138/76; PULSE 108; RESP 18; O2SAT 96
[2016-12-09 06:19] VITALS: BP 142/79; PULSE 85; RESP 18; O2SAT 97
[2016-12-09 10:08] VITALS: BP 175/80; PULSE 85; RESP 18; O2SAT 96
--- NOTE | 2016-12-09 10:37 | PD ---
History of Present Illness Chief Complaint: Suicide Ideation/Attempt Time Seen by Provider: 10:15 Travel History International Travel<30 Days: No Contact w/Intl Traveler<30days: No Known affected area: No Legal Status Legal Status: Voluntary History of Present Illness: History of Present Illness HPI The patient is a 61 year old female with history of alcohol abuse as well as alcohol induced mood disorder who presents to ED as a voluntary patient for psychiatric evaluation after she drank rubbing alcohol. She was initially seen in [place] and was sent here for psychiatric evaluation. EMR is reviewed. the patient was admitted to [facility] in Mar 2016 s/p a suicidal attempt via overdose. Current BAL is 123. The patient was monitored in J pod and she presented no suicidality and no behavioral concerns. She is alert and oriented and presents no tremors or any other sign of withdrawal. Speech is clear, logical and goal directed. No rosi or hypomania. Mood is euthymic and she denies significant symptoms of depression. reports that she last took antidepressants one year ago and does not feel like she needs to be on medication at this time. There is no psychosis. She denies suicidal or homicidal ideation. She relates that she went shopping yesterday and was unable to buy wine. She had some rubbing alcohol at home and mixed it with juice and " had a drink". She denies that she was trying to kill herself and is requesting discharge as she has house guests to go take cre of this morning. She minimizes her ETOH use and reports only drinking " a small bottle of wine occasionally". Telephone call to her with the patient's permission. He provided background information. He has concerns for her continuing to drink. He tells me that she has been in [facility] and was not participating in program and was asked to leave after 3 months. I suggested he contacted [facility] to arrange for IOP as well as Epifanio Hernandez for the family. He will pick her up from the hospital if she is discharged. PFSH Past Medical History Autoimmune Disease: No Anxiety: Yes Depression: Yes Cancer: No Cardiovascular Problems: Yes High Cholesterol: Yes Diminished Hearing: No Endocrine: No Gastrointestinal Disorders: Yes (Reflux) GERD: Yes Genitourinary: No Hypertension: Yes Immune Disorder: No Implanted Vascular Access Dvce: No Musculoskeletal: Yes (Arthritis) Neurologic: Yes Psychiatric: Yes Reproductive: No Respiratory: No Immunizations Current: No Migraines: Yes Thyroid Disease: No Tetanus Vaccination: Unknown Influenza Vaccination: No Menopausal: Yes Past Surgical History Body Medical Devices: Jaw, pins Eye Surgery: Yes (CATARACTS) Other Surgery: Yes (Right knee, Cataracts, Abdominal,) Psychiatric History Psychiatric History Hx Psychiatric Treatment: Patient last admit to [facility] for depression s/p OD Sep -2015. Hx of PTSD, depression and anxiety d/o. History of Inpatient Treatment: Yes Guns or firearms in home: No Social History Born in [place]. moved to [place] in 1969. x 18 years. has one daughter. retired hairdresser. Hx Alcohol Use: Yes (UNKNOWN TYPE OF DRINK ) Hx Tobacco Use: No Hx Substance Use: Yes Substance Use Type: Alcohol, Prescription Medications Hx of Substance Use Treatment: Yes ( Patient was at [facility] for 3 months for dextox and at [place] [facility] ) Family Psychiatric History Negative Allergies-Medications (Allergen,Severity, Reaction): Coded Allergies: Penicillin (Verified Allergy, Severe, ANAPHYLAXIS, 12/08/16) UNKNOWN SINCE CHILDHOOD Reported Meds & Prescriptions Reported Meds & Active Scripts Active Review of Systems Except as stated in HPI: all other systems reviewed are Neg Musculoskeletal: COMPLAINS OF: Joint pain (right elbow) Exam Alert: Yes Weare: Person (ox4) Mood: Calm Affect: Appropriate Speech: Clear, Logical Eye Contact: Normal Memory Intact: Comment (no impairmetn) Hallucinations: Other (neagtive) Delusions: No Suicidal: Ideation (deneis any) Homicidal: Ideation (deneis any) Insight/Judgement Poor. Poor MDM Medical Decision Making Medical Record Reviewed: Yes Assessment/Plan 61 year old female with history of alcohol abuse who is under a voluntary status after she drank rubbing alcohol.She reports that she was unable to buy wine therefore she drank some rubbing alcohol mixed with juice. She denies that this was a suicide attempt and that she is not suicidal or homicidal. Patient has a primary dx of alcohol abuse but at this time is at precontemplative stage. She is requesting discharge and at present does not meet criteria for BA. Discharge to . Recommend abstinence. . Orders Electrocardiogram (12/08/16 16:50) Complete Blood Count With Diff (12/08/16 16:50) Comprehensive Metabolic Panel (12/08/16 16:50) Iv Access Insert/Monitor (12/08/16 16:50) Ecg Monitoring (12/08/16 16:50) Oximetry (12/08/16 16:50) Psych Screen (12/08/16 16:50) Sodium Chloride 0.9% Flush (Ns Flush) (12/08/16 17:00) Call Poison Control (12/08/16 16:50) Drug Screen, Random Urine (12/08/16 16:50) Alcohol (Ethanol) (12/08/16 16:50) Salicylates (Aspirin) (12/08/16 16:50) Tylenol (Acetaminophen) (12/08/16 16:50) Sodium Chlor 0.9% 1000 Ml Inj (Ns 1000 M (12/08/16 17:00) Beta Hydroxybutyrate (Acetone) (12/08/16 17:00) Lorazepam (Ativan) (12/08/16 19:15) Diet Regular Basic (12/09/16 Breakfast) Results Vital Signs Date Time Temp Pulse Resp B/P Pulse Ox O2 Delivery O2 Flow Rate FiO2 12/09/16 10:08 85 18 175/80 96 Room Air 12/09/16 06:19 85 18 142/79 97 12/09/16 02:58 108 18 138/76 96 12/08/16 22:39 97.7 98 18 142/72 97 12/08/16 20:51 74 16 112/64 99 Room Air 12/08/16 19:16 78 12/08/16 19:16 16 99 Room Air 12/08/16 19:16 78 16 97/79 99 Room Air 12/08/16 17:58 89 18 121/93 98 Room Air 12/08/16 17:21 86 18 100/67 97 Room Air 12/08/16 17:04 18 98 Room Air 12/08/16 16:46 18 99 Room Air 12/08/16 16:39 98.0 88 20 120/72 94 Laboratory Tests Test 12/08/16 12/08/16 17:00 17:55 White Blood Count 10.3 Red Blood Count 4.49 Hemoglobin 13.9 Hematocrit 40.9 Mean Corpuscular Volume 91.1 Mean Corpuscular Hemoglobin 31.0 Mean Corpuscular Hemoglobin 34.0 Concent Red Cell Distribution Width 13.0 Platelet Count 331 Mean Platelet Volume 8.3 Neutrophils (%) (Auto) 75.4 Lymphocytes (%) (Auto) 20.5 Monocytes (%) (Auto) 3.8 Eosinophils (%) (Auto) 0.0 Basophils (%) (Auto) 0.3 Neutrophils # (Auto) 7.8 Lymphocytes # (Auto) 2.1 Monocytes # (Auto) 0.4 Eosinophils # (Auto) 0.0 Basophils # (Auto) 0.0 CBC Comment DIFF FINAL Differential Comment Sodium Level 142 Potassium Level 3.3 Chloride Level 105 Carbon Dioxide Level 22.0 Anion Gap 15 Blood Urea Nitrogen 10 Creatinine 1.80 Estimat Glomerular Filtration 29 Rate Random Glucose 129 Calcium Level 9.2 Total Bilirubin 0.1 Aspartate Amino Transf 16 (AST/SGOT) Alanine Aminotransferase 17 (ALT/SGPT) Alkaline Phosphatase 83 Total Protein 8.3 Albumin 4.3 Salicylates Level LESS THAN 1.7 Acetaminophen Level LESS THAN 2.0 Ethyl Alcohol Level 123 B-Hydroxybutyrate 0.37 Urine Opiates Screen NEG Urine Barbiturates Screen NEG Urine Amphetamines Screen NEG Urine Benzodiazepines Screen NEG Urine Cocaine Screen NEG Urine Cannabinoids Screen NEG Diagnosis Primary Impression: Alcohol intoxication Additional Impression: Alcohol Abuse Ruled Out: Suicidal ideation Psychiatrically Cleared: Yes Med/ Other Pt Specific Info: No Meds Exist/No RX given Prescriptions No Active Prescriptions or Reported Meds Disposition: 01 DISCHARGE HOME Condition: Stable Problem Qualifiers Primary Impression: Alcohol intoxication Qualified Code: F10.920 - Alcohol intoxication, uncomplicated Taylor Perez [facility] December 09, 2016 10:37
--- NOTE | 2016-12-09 13:34 | EKG ---
Date Performed: 12/08/2016 Time Performed: 16:58:56 PTAGE: 61 years EKG: Sinus rhythm Leftward axis Inferior infarct - age undetermined Since previous tracing, no significant change note d Abnormal ECG PREVIOUS TRACING : 11/04/2016 17.36 DOCTOR: Kathryn Nelson Interpretating Date/Time 12/09/2016 13:33:20
== END 2016-12-09 11:30 | disposition home or self-care (01) ==
LOC: PHED 16:23 → NEPJ 12-09 11:30
DX: R45.851 Suicidal ideations (principal); F10.129 Alcohol abuse with intoxication, unspecified; F32.9 Major depressive disorder, single episode, unspecified; F41.9 Anxiety disorder, unspecified; E78.00 Pure hypercholesterolemia, unspecified; K21.9 Gastro-esophageal reflux disease without esophagitis; I10 Essential (primary) hypertension; T51.2X2A Toxic effect of 2-Propanol, intentional self-harm, initial encounter; Y92.9 Unspecified place or not applicable; R94.31 Abnormal electrocardiogram [ECG] [EKG]
CPT/HCPCS: 80053; 80307; 82010; 85025; 93005; 96360; 96361; 99285; J7030; 99281